=== PATIENT | male | born 1970 | race Caucasian/White ===

== ENCOUNTER 2017-03-31 08:24 | Emergency (ER) | payer OTHER ==
[~2017-03-31] VITALS: Ht 167.6 cm; Wt 72.6 kg
[~2017-03-31 08:24] MED LIST: HUMALOG100 UNIT/1 SQ; LANTUS100 UNIT/M SQ; LISINOPRIL5 MG PO; NITROGLYCERIN0.4 MG SUBLING; TOPROL XL25 MG PO; ZOCOR20 MG PO; [UNRECOGNIZED DRUG - REMARK]
[2017-03-31] MEDS ORDERED: MUCINEX600 MG PO (08:41)
[2017-03-31] MEDS ORDERED: TAMIFLU75 MG PO (08:41)
[2017-03-31] MEDS ORDERED: ROBITUSSIN100 MG/53 PO (08:42)
[2017-03-31 09:26] LABS: HEMATOCRIT 39.9 % (42.0-52.0); MCH 30.3 pg (26.0-34.0); MCV 86.6 fL (80.0-100.0); MPV 8.8 fl. (7.2-11.1); NUCLEATED RBCS 0 /100WBC; PLATELET COUNT* 269 thou/uL (150-400); RDW-CV 12.9 % (10.5-14.5); WBC 14.5 thou/uL (4.0-11.0)
[2017-03-31 09:29] LABS: CALCIUM 9.4 mg/dL (8.5-10.1); CREATININE 1.2 mg/dL (0.6-1.3); POTASSIUM 3.8 mmol/L (3.5-5.1)
[2017-03-31 09:34] LABS: ALBUMIN 2.6 g/dL (3.4-5.0); TOTAL BILIRUBIN 0.5 mg/dL (<0.1-1.0); TOTAL PROTEIN 7.7 g/dL (6.4-8.2)
[2017-03-31] MEDS ORDERED: MEDROL DOSPAK21 TA1 PO (09:46)
[2017-03-31] MEDS ORDERED: ZOFRAN4 MG PO (09:46)
[2017-03-31] MEDS ORDERED: HYDROCODON-ACE1 EAC7 PO (09:46)
[2017-03-31 10:09] LABS: ABSOLUTE LYMPHOCYTES 0.9 thou/uL (0.8-5.3); ABSOLUTE MONOCYTES 0.9 thou/uL (0.0-1.2); ABSOLUTE NEUTROPHILS 12.8 thou/uL (1.6-8.1); MYELOCYTES 2 %
[2017-03-31 10:10] LABS: PLATELET ESTIMATE ADEQUATE; TOXIC GRANULATION 2+
[2017-03-31 10:29] VITALS: BP 140/74
== END 2017-03-31 10:30 | disposition home or self-care (01) ==
LOC: M.ERS 08:24
PROVIDERS: Emergency Medicine
DX: J11.1 Influenza due to unidentified influenza virus with other respiratory manifestations (principal); E10.9 Type 1 diabetes mellitus without complications; Z98.890 Other specified postprocedural states; Z88.8 Allergy status to other drugs, medicaments and biological substances

== ENCOUNTER 2019-09-20 04:49 | Emergency (ER) | payer OTHER ==
[~2019-09-20] VITALS: Ht 167.6 cm; Wt 74.8 kg
[~2019-09-20 04:49] MED LIST changes: +HYDROCODON-ACE1 EAC7 PO; +MEDROL DOSPAK21 TA1 PO; +MUCINEX600 MG PO; +ROBITUSSIN100 MG/53 PO; +TAMIFLU75 MG PO; +ZOFRAN4 MG PO
[2019-09-20] MEDS ORDERED: OMEPRAZOLE40 MG PO (05:02)
[2019-09-20 05:25] LABS: ABSOLUTE BASOPHILS 0.1 thou/uL (0.0-0.2); ABSOLUTE EOSINOPHILS 0.1 thou/uL (0.0-0.7); ABSOLUTE LYMPHOCYTES 2.1 thou/uL (0.8-5.3); ABSOLUTE MONOCYTES 0.6 thou/uL (0.0-1.2); ABSOLUTE NEUTROPHILS 4.8 thou/uL (1.6-8.1); BASOPHILS 0.8 %; HEMATOCRIT 44.2 % (42.0-52.0); HEMOGLOBIN 15.4 gm/dL (14.0-18.0); LYMPHOCYTES 27.6 %; MCH 31.1 pg (26.0-34.0); MCHC 34.9 g/dL (28.0-37.0); MCV 89.1 fL (80.0-100.0); MONOCYTES 7.3 %; MPV 8.5 fl. (7.2-11.1); NUCLEATED RBCS 0 /100WBC; PLATELET COUNT* 242 thou/uL (150-400); POLYS 63.3 %; RBC 4.96 mil/uL (4.50-6.00); RDW-CV 13.3 % (10.5-14.5); WBC 7.6 thou/uL (4.0-11.0)
[2019-09-20 05:40] LABS: CALCIUM 9.2 mg/dL (8.5-10.1); CREATININE 1.2 mg/dL (0.6-1.3)
[2019-09-20 05:43] LABS: MAGNESIUM 1.7 mg/dL (1.8-2.4); TOTAL BILIRUBIN 0.6 mg/dL (<0.1-1.0); TOTAL PROTEIN 7.9 g/dL (6.4-8.2)
[2019-09-20] MEDS ORDERED: CARAFATE 1 GM TA1 GM PO (06:45)
[2019-09-20] MEDS ORDERED: REGLAN 10 MG TA10 MG PO (06:45)
[2019-09-20] MEDS ORDERED: HYDROCODON-ACE1 EAC8 PO (06:45)
[2019-09-20 06:50] VITALS: BP 162/87
== END 2019-09-20 06:50 | disposition home or self-care (01) ==
LOC: M.ERS 04:49
PROVIDERS: Emergency Medicine
DX: K29.70 Gastritis, unspecified, without bleeding (principal); E10.9 Type 1 diabetes mellitus without complications; Z90.49 Acquired absence of other specified parts of digestive tract; Z91.041 Radiographic dye allergy status